=== PATIENT | female | born 1960 ===

== ENCOUNTER 2018-07-13 17:15 | Emergency (ER) | payer OTHER ==
[2018-07-13 17:29] VITALS: RESP 20
[2018-07-13] MEDS ORDERED: PHENYLEPHRINE HCL 0.5% SPR NAS ONE ×2 (17:49→17:50)
[2018-07-13] MEDS ORDERED: CLONIDINE 0.1 MG TAB PO ONE (19:19)
[2018-07-13] MEDS ORDERED: CLONIDINE 0.1 MG TAB ONE (19:20)
[2018-07-13] MEDS ORDERED: ACETAMINOPHEN 500 MG 500 MG TAB PO ONE (19:55)
[2018-07-13 19:58] VITALS: TEMP 97
[2018-07-13] MEDS ORDERED: ACETAMINOPHEN 500 MG 500 MG TAB ONE (19:59)
[2018-07-13] MEDS ORDERED: HYDRALAZINE HYDROCHLORIDE 20 MG/ML SOL IV ONE (20:15)
[2018-07-13] MEDS ORDERED: HYDRALAZINE HYDROCHLORIDE 20 MG/ML SOL ONE (20:24)
[2018-07-13 20:50] LABS: CALCIUM 8.6 mg/dl (8.5-10.1); CARBON DIOXIDE 29.8 mEq/L (21-32); CREATININE 1.04 mg/dl (0.60-1.00); POTASSIUM 4.6 mMol/L (3.5-5.1)
[2018-07-13 21:13] LABS: APPEARANCE,URINE Clear; BILIRUBIN,URINE NEGATIVE (NEGATIVE); COLOR,URINE Yellow; GLUCOSE, URINE (UA) NEGATIVE (NEGATIVE); KETONES,URINE NEGATIVE (NEGATIVE); LEUKOCYTE ESTERASE ,URINE NEGATIVE (NEGATIVE); NITRATE,URINE NEGATIVE (NEGATIVE); OCCULT BLOOD,URINE NEGATIVE (NEG-TRACE); PH,URINE 5.5; UROBILINOGEN,URINE 0.2 (0.2-1.0 EU)
[2018-07-13 21:17] LABS: BACTERIA 1+ (< 1+); CRYSTALS NEGATIVE (0-3 AVE/HPF); RBC,URINE 0-2 (0-3AV/HPF)
[2018-07-13 22:16] VITALS: BP 136/79; PULSE 70; O2SAT 95
== END 2018-07-13 22:00 | disposition home or self-care (01) ==
LOC: ED 17:15
DX: I10 Essential (primary) hypertension (principal); R04.0 Epistaxis
CPT/HCPCS: 30901; 80048; 81001; 96374; 99284; 99285; J0360; A9270-GY

== ENCOUNTER 2018-07-15 02:17 | Emergency (ER) | payer OTHER ==
[2018-07-15] MEDS ORDERED: CLONIDINE 0.1 MG TAB PO ONE (02:29)
[2018-07-15 02:32] VITALS: RESP 20; TEMP 97; O2SAT 98
[2018-07-15] MEDS ORDERED: CLONIDINE 0.1 MG TAB ONE (02:33)
[2018-07-15 03:24] VITALS: BP 159/81; PULSE 61
== END 2018-07-15 03:05 | disposition home or self-care (01) ==
LOC: ED 02:17
DX: R04.0 Epistaxis (principal); I10 Essential (primary) hypertension
CPT/HCPCS: 99282; 99283; A9270-GY